=== PATIENT | male | born 1940 | race Caucasian/White ===

== ENCOUNTER 2016-08-03 09:36 | Emergency (ER) | payer OTHER, MEDICARE ==
[~2016-08-03 09:36] MED LIST: ATIVAN0.5 M1 PO; PREDNISONE 10MG10 M1 PO; XANAX0.25 MG PO
--- NOTE | 2016-08-03 10:52 | ED AMS/SEIZURE/WEAK/DIZZY ---
History of Present Illness General Chief Complaint: Dizziness Stated Complaint: DIZZINESS Source: patient, family, old records Exam Limitations: no limitations Vital Signs & Intake/Output Vital Signs & Intake/Output Vital Signs Date Time Temp Pulse Resp B/P Pulse O2 O2 Flow FiO2 Ox Delivery Rate 08/03 1339 64 20 169/77 97 Room Air 08/03 1122 97.4 60 20 160/70 97 Room Air 08/03 0939 98.9 75 16 149/91 96 Room Air Allergies Coded Allergies: NO KNOWN ALLERGIES (NO) (08/03/16) Reconcile Medications Alprazolam (Xanax) 0.25 MG TAB 1 TAB PO BID PRN ANXIETY Amlodipine Besylate 10 MG TABLET 1 TAB PO DAILY B/P (Reported) Aspirin (Nish Chewable Aspirin) 81 MG TAB.CHEW 1 TAB PO D HEART HEALTH ( Reported) Atorvastatin Calcium 40 MG TABLET 1 TAB PO DAILY CHOLESTEROL (Reported) Calcitriol 0.25 MCG CAPSULE 1 CAP PO DAILY UNK (Reported) Carvedilol 25 MG TABLET 1 TAB PO BID UNK (Reported) Cholecalciferol (Vitamin D3) (Vitamin D) 1,000 UNIT CAPSULE 1 CAP PO TID SUPPLEMENT (Reported) Clopidogrel Bisulfate (Clopidogrel) 75 MG TABLET 1 TAB PO DAILY UNK (Reported ) Fish Oil/Borage/Flax/Om3,6,9#1 ([place] 3-6-9 1,200 MG Softgel) 1,200 MG CAPSULE 1 CAP PO BID SUPPLEMENT (Reported) Furosemide 40 MG TABLET 1 TAB PO DAILY EDEMA (Reported) Insulin Glargine,Hum.rec.anlog (Lantus Solostar) 100 UNIT/ML (3 ML) INSULN.PEN 0 SC SI DM (Reported) 20 UNITS Q AM 26 UNITS Q PM Insulin Lispro (Humalog Kwikpen U-100) 100 UNIT/ML INSULN.PEN 0 SI DM ( Reported) SLIDING SCALE COVERAGE AC Lisinopril 10 MG TABLET 1 TAB PO DAILY BP (Reported) Lorazepam (Ativan) 0.5 MG TABLET 1 TAB PO BIDP PRN ANXIETY Sitagliptin Phosphate (Januvia) 25 MG TABLET 1 TAB PO DAILY DM (Reported) Triage Note: TRIAGE; PT TO ED C/O FEELING LIGHTHEADED THAT HE MAY PASS OUT SINCE LAST NIGHT, AND STILL FEELS THE SAME THIS MORNING. DENIES ANY CP. +NAUSEA. Triage Nurses Notes Reviewed? yes Onset: yesterday Duration: day(s):, constant, continues in ED Timing: recent history Injury Environment: home Severity: moderate No Modifying Factors: none HPI: 1 day prior to admission patient complains of increasing dizziness lightheaded feeling generalized weakness decreased appetite nausea and anxiety. There is no change with position exertion. He denies fever chills vomiting diarrhea abdominal pain chest pain shortness breath headache dysuria rash bleeding Past History Travel History Traveled to [place] past 21 day No Medical History Any Pertinent Medical History? see below for history Neurological: NONE EENT: NONE Cardiovascular: hypertension, hyperlipidemia, STENTS 2009 Respiratory: NONE Gastrointestinal: NONE Hepatic: NONE Renal: KIDNEY FAILURE Musculoskeletal: NONE Psychiatric: NONE Endocrine: diabetes Blood Disorders: NONE Cancer(s): NONE CASE MONITOR/Reproductive: NONE History of MRSA: No History of VRE: No History of CDIFF: No Surgical History Surgical History: PTCA / stent Psychosocial History Who do you live with Patient/Self Services at Home None What is your primary language Norwegian Tobacco Use: Never used Family History Hx Contributory? No Review of Systems Review of Systems Constitutional: Reports: see HPI, malaise. EENTM: Reports: no symptoms. Respiratory: Reports: no symptoms. Cardiovascular: Reports: no symptoms. GI: Reports: see HPI, nausea. Genitourinary: Reports: no symptoms. Musculoskeletal: Reports: no symptoms. Skin: Reports: no symptoms. Neurological/Psychological: Reports: see HPI, anxiety, weakness, other (dizziness). Hematologic/Endocrine: Reports: no symptoms. Immunologic/Allergic: Reports: no symptoms. All Other Systems: Reviewed and Negative Physical Exam Physical Exam General Appearance: well developed/nourished, alert, awake, anxious, moderate distress, obese Head: atraumatic, normal appearance Eyes: Bilateral: normal appearance, PERRL, EOMI. Ears, Nose, Throat: normal pharynx, normal ENT inspection, Dry mucous membranes Neck: normal inspection, supple, full range of motion, no midline tenderness Respiratory: normal breath sounds, chest non-tender, no respiratory distress, quiet respiration, lungs clear Cardiovascular: regular rate/rhythm, normal peripheral pulses, tachycardia, norml femoral pulses equa Peripheral Pulses: 4+ carotid (R), 4+ carotid (L) Gastrointestinal: normal bowel sounds, soft, non-tender, no organomegaly Back: normal inspection, normal range of motion Extremities: normal range of motion, no ligament instability Neurologic/Psych: no motor/sensory deficits, awake, alert, oriented x 3, normal gait, normal mood/affect Reflexes: 2+: bicep (R), bicep (L). Skin: intact, normal color, warm/dry Lymphatic: no anterior cervical darren Core Measures ACS in differential dx? Yes CVA/TIA Diagnosis: No Severe Sepsis Present: No Septic Shock Present: No Progress Differential Diagnosis: arrythmia, benign positional vertigo, drug intoxication, electrolyte imbalance, hypoglycemia, hypoxia, pneumonia, postural hypotension Plan of Care: Orders Procedure Date/time Status MISTAKE 08/03 955 Active TROPONIN LEVEL 08/03 955 Complete COMPREHENSIVE METABOLIC PANEL 08/03 955 Complete CBC WITHOUT DIFFERENTIAL 08/03 955 Complete EKG 08/03 955 Active Laboratory Tests 08/03/16 1018: Anion Gap 13, Estimated GFR 17 L, BUN/Creatinine Ratio 21.1, Glucose 103 H, Calcium 9.4, Total Bilirubin 0.5, AST 11 L, ALT 24, Alkaline Phosphatase 80, Troponin I 0.02, Total Protein 7.3, Albumin 4.0, Globulin 3.3, Albumin/Globulin Ratio 1.2, CBC w Diff NO MAN DIFF REQ, RBC 3.44 L, MCV 90.9, MCH 30.8, RDW 14.1 , MPV 9.0, Gran % 75.6 H, Lymphocytes % 13.9 L, Monocytes % 6.4, Eosinophils % 2.9, Basophils % 1.2, Absolute Granulocytes 5.6, Absolute Lymphocytes 1.0 L, Absolute Monocytes 0.5, Absolute Eosinophils 0.2, Absolute Basophils 0.1, PUBS MCHC 33.9 Initial ED EKG: normal axis, normal intervals, normal p-waves, normal QRS complex, normal sinus rhythm, no ST T wave changes Prior EKG: unchanged Rhythm Strip: sinus tachycardia Departure Departure Time of Disposition: 1300 Disposition: HOME OR SELF CARE Condition: Stable Clinical Impression Primary Impression: Prerenal azotemia Secondary Impressions: Acute hyperkalemia, Dehydration syndrome Referrals: DUONG LEMUS,BANDAR Castellano (PCP/Family) Additional Instructions: Skip your furosemide for 2 days and discuss decreasing the dose with your doctors. Departure Forms: Customer Survey General Discharge Information Skip your furosemide for 2 days and discuss decreasing the dose with your doctors. Departure Forms: Customer Survey General Discharge Information
[2016-08-03 10:56] LABS: ABSOLUTE BASOPHIL COUNT 0.1 /CUMM (0.0-0.2); ABSOLUTE EOSINOPHIL COUNT 0.2 /CUMM (0.0-0.7); ABSOLUTE GRANULOCYTE CT 5.6 /CUMM (1.4-6.5); ABSOLUTE MONOCYTE COUNT 0.5 /CUMM (0.10-0.60); BASOPHIL % 1.2 % (0.0-2.0); EOSINOPHIL % 2.9 % (0-5); GRANULOCYTE % 75.6 % (42.2-75.2); HEMATOCRIT 31.3 % (42-52); MEAN CORPUSCULAR HGB 30.8 PG (27.0-31.0); MEAN CORPUSCULAR HGB CONC 33.9 G/DL (33.0-37.0); MEAN CORPUSCULAR VOLUME 90.9 FL (80.0-94.0); PLATELET COUNT 267 /CUMM (130-400); RBC DISTRIBUTION WIDTH 14.1 % (11.5-14.5); RED BLOOD CELL CT 3.44 /CUMM (4.70-6.10); WHITE BLOOD CELL COUNT 7.5 /CUMM (4.8-10.8)
[2016-08-03] MEDS ORDERED: CALCITRIOL0.25 MC1 PO (11:23)
[2016-08-03] MEDS ORDERED: ATORVASTATIN CA40 M1 PO (11:25)
[2016-08-03] MEDS ORDERED: BAYER CHEWABLE81 MG PO (11:25)
[2016-08-03] MEDS ORDERED: CARVEDILOL25 M1 PO (11:25)
[2016-08-03] MEDS ORDERED: CLOPIDOGREL75 M1 PO (11:26)
[2016-08-03] MEDS ORDERED: AMLODIPINE BESY10 M1 PO (11:26)
[2016-08-03] MEDS ORDERED: JANUVIA25 M1 PO (11:26)
[2016-08-03] MEDS ORDERED: FUROSEMIDE40 M1 PO (11:27)
[2016-08-03] MEDS ORDERED: LANTUS SOL100 UNIT/1 SC (11:29)
[2016-08-03] MEDS ORDERED: LISINOPRIL10 M1 PO (11:30)
[2016-08-03] MEDS ORDERED: OMEGA 3-6-9 11200 MG PO (11:30)
[2016-08-03] MEDS ORDERED: VITAMIN D1000 UNI1 PO (11:31)
[2016-08-03] MEDS ORDERED: HUMALOG KW100 UNIT/1 (11:33)
[2016-08-03 13:39] VITALS: BP 169/77
== END 2016-08-03 13:41 ==
LOC: ERH 09:36
PROVIDERS: Emergency Medicine
DX: R79.89 Other specified abnormal findings of blood chemistry (principal); E87.5 Hyperkalemia; E86.0 Dehydration
CPT/HCPCS: 93005; 93010; 96360; 96361

== ENCOUNTER 2017-07-29 01:05 | Emergency (ER) | payer OTHER, MEDICARE ==
[2017-07-29 01:05] VITALS: BP 0/0
[~2017-07-29 01:05] MED LIST changes: +AMLODIPINE BESY10 M1 PO; +ATORVASTATIN CA40 M1 PO; +BAYER CHEWABLE81 MG PO; +CALCITRIOL0.25 MC1 PO; +CARVEDILOL25 M1 PO; +CLOPIDOGREL75 M1 PO; +CYCLOBENZAPRINE5 M2 PO; +FUROSEMIDE40 M1 PO; +HUMALOG KW100 UNIT/1; +JANUVIA25 M1 PO; +LANTUS SOL100 UNIT/1 SC; +LISINOPRIL10 M1 PO; +OMEGA 3-6-9 11200 MG PO; +VITAMIN D1000 UNI1 PO
--- NOTE | 2017-07-29 01:17 | ED CRITICAL CARE ---
History of Present Illness General Chief Complaint: Cardiopulmonary Resuscitation Stated Complaint: CPR Source: old records, EMS Exam Limitations: clinical condition Vital Signs & Intake/Output Vital Signs & Intake/Output 0 Allergies Coded Allergies: No Known Allergies (05/20/17) Reconcile Medications Amlodipine Besylate 10 MG TABLET 1 TAB PO DAILY B/P (Reported) Aspirin (Nish Chewable Aspirin) 81 MG TAB.CHEW 1 TAB PO D HEART HEALTH ( Reported) Atorvastatin Calcium 40 MG TABLET 1 TAB PO DAILY CHOLESTEROL (Reported) Calcitriol 0.25 MCG CAPSULE 1 CAP PO DAILY UNK (Reported) Carvedilol 25 MG TABLET 1 TAB PO BID UNK (Reported) Cholecalciferol (Vitamin D3) (Vitamin D) 1,000 UNIT CAPSULE 1 CAP PO TID SUPPLEMENT (Reported) Clopidogrel Bisulfate (Clopidogrel) 75 MG TABLET 1 TAB PO DAILY UNK (Reported ) Cyclobenzaprine HCl 5 MG TABLET 1 TAB PO Q8P PRN PAIN Fish Oil/Borage/Flax/Om3,6,9#1 ([place] 3-6-9 1,200 MG Softgel) 1,200 MG CAPSULE 1 CAP PO BID SUPPLEMENT (Reported) Furosemide 40 MG TABLET 1 TAB PO DAILY EDEMA (Reported) Insulin Glargine,Hum.rec.anlog (Lantus Solostar) 100 UNIT/ML (3 ML) INSULN.PEN 0 SC SI DM (Reported) 20 UNITS Q AM 26 UNITS Q PM Insulin Lispro (Humalog Kwikpen U-100) 100 UNIT/ML INSULN.PEN 0 SI DM ( Reported) SLIDING SCALE COVERAGE AC Sitagliptin Phosphate (Januvia) 25 MG TABLET 1 TAB PO DAILY DM (Reported) Triage Nurses Notes Reviewed? yes HPI: EMS was called for a medical. When they arrived there was no answer the door. They gained entry and found the patient unresponsive on the floor with a nebulizer next to him. Patient was pulseless and apneic. Patient was in asystole. CPR was initiated IV was accessed. Patient received a total of 6 doses of IV epinephrine. Patient had 2 episodes of fine V. fib and was defibrillated twice and asystole. Patient received amiodarone. Patient was brought to the emergency department in asystole. Past History Travel History Traveled to [place] past 21 day No Medical History Any Pertinent Medical History? see below for history Neurological: NONE EENT: NONE Cardiovascular: hypertension, hyperlipidemia, STENTS 2009 Respiratory: NONE Gastrointestinal: NONE Hepatic: NONE Renal: KIDNEY FAILURE Musculoskeletal: NONE Psychiatric: NONE Endocrine: diabetes Blood Disorders: NONE Cancer(s): NONE REAL ESTATE PHOTOGRAPHER/Reproductive: NONE History of MRSA: No History of VRE: No History of CDIFF: No Surgical History Surgical History: PTCA / stent Psychosocial History Who do you live with Patient/Self Services at Home None What is your primary language [place]ican Tobacco Use: Cognitive Impairment Family History Hx Contributory? No Review of Systems Review of Systems Constitutional: Reports: see HPI. Physical Exam Physical Exam General Appearance: severe distress Head: atraumatic Eyes: Bilateral: other (fixed and dilated). Neck: supple Respiratory: rhonchi, rales, with BVM Cardiovascular: NO HEART SOUNDS Core Measures ACS in differential dx? Yes CVA/TIA Diagnosis No Sepsis Present: No Sepsis Focused Exam Completed? No Progress Differential Diagnoses I considered the following diagnoses in my evaluation of the patient: [CARDIAC ARREST] Plan of Care: PT ASYSTOLIC, PRONOUNCED Initial ED EKG: none Rhythm Strip: ASYSTOLE Departure Departure Disposition: Condition: Stable Clinical Impression Primary Impression: Cardiac arrest Referrals: Aaron LEMUS,Iggy Castellano (PCP/Family) Departure Forms: General Discharge Information Critical Care Note Critical Care Note Critical Care Time: non-applicable Total CPR Time (mins): 4
== END 2017-07-29 01:09 | disposition expired ==
LOC: ERH 01:05
DX: I46.9 Cardiac arrest, cause unspecified (principal)
CPT/HCPCS: 1387; 94799; 99291